=== PATIENT | female | born 1945 | race Caucasian/White ===

== ENCOUNTER 2020-11-02 19:11 | Emergency (ER) | payer MEDICARE, MEDICAID ==
[~2020-11-02] VITALS: Ht 170.2 cm; Wt 91.0 kg
[2020-11-02] MEDS ORDERED: ASPI-1497 PO (19:23)
[2020-11-02] MEDS ORDERED: LOSA25TA26 PO (19:23)
[2020-11-02] MEDS ORDERED: HYDR25TA PO (19:23)
[2020-11-02] MEDS ORDERED: HYDR-4134 PO (19:23)
[2020-11-02] MEDS ORDERED: INSU300I3 SQ (19:23)
[2020-11-02] MEDS ORDERED: victoza (19:23)
[2020-11-02] MEDS ORDERED: GABA-532 PO (19:23)
[2020-11-02] MEDS ORDERED: humalog (19:23)
[2020-11-02] MEDS ORDERED: TRAMADOL 50MG TABLET PO ONE (20:45)
[2020-11-02] MEDS ORDERED: ACETAMINOPHEN 325MG TABLET PO ONE (20:45)
[2020-11-02] MEDS ORDERED: TRAM50TA MT (21:26)
[2020-11-02] MEDS ORDERED: POLY17PO3 MT (21:26)
[2020-11-02] MEDS ORDERED: TOPUD MT (21:26)
[2020-11-02 22:00] VITALS: BP 184/94
== END 2020-11-02 22:10 | disposition home or self-care (01) ==
LOC: ER 19:11
DX: M54.5 Low back pain (principal); G89.29 Other chronic pain; E11.9 Type 2 diabetes mellitus without complications; I10 Essential (primary) hypertension; E78.00 Pure hypercholesterolemia, unspecified; Z79.4 Long term (current) use of insulin; Z79.82 Long term (current) use of aspirin
CPT/HCPCS: 99283